=== PATIENT | female | born 1990 ===

== ENCOUNTER 2018-02-27 18:59 | Outpatient (REF) | payer OTHER, SELFPAY ==
--- NOTE | 2018-02-27 16:30 | PAPFT_PTH ---
PATIENT: WENCESLAO MAI LOC: [facility] U#:[id number] AGE/SX: 27/F ROOM: RE02/27/[address]: Alis Alexander : 1990 BED: DIS: 02/27/2018 SPEC #: [id number] RECD: 03/02/18 12:47 STATUS: CORNELIA HICKS #: [id number] NORMA: 02/27/18 16:[address]: Alis Alexander DEPT: [facility] Cytology RECD BY: Virgie Samano ENTERED: 03/02/18 12:47 SP TYPE: PAPFT OTHR DR: Omid Bacon V Tissues: 1 - CX/ENDOCX FOR PAP SMEARS Procedures: PAP THIN PREP/[facility] Screening HPV DNA PROBE Comments: [id number] (CHLAMYDIA/GC)
[2018-03-03 13:02] LABS: Chlamydia Result Negative; GC Result Negative; Specimen Description SEE COMMENTS
== END 2018-02-27 19:19 ==
LOC: NCHCN 18:59
PROVIDERS: PCP Physician Assistant Medical; Visit Provider Nurse Practitioner Family
DX: Z12.4 Encounter for screening for malignant neoplasm of cervix (principal); Z11.51 Encounter for screening for human papillomavirus (HPV); Z11.3 Encounter for screening for infections with a predominantly sexual mode of transmission
CPT/HCPCS: 87491; 87591; 88142; 87624

== ENCOUNTER 2019-11-12 21:37 | Outpatient (REF) | payer OTHER, SELFPAY ==
[2019-11-15 15:35] LABS: Chlamydia Result Negative (Negative); GC Result Negative (Negative)
== END 2019-11-12 21:57 ==
LOC: NCHCN 21:37
PROVIDERS: PCP Physician Assistant Medical; Visit Provider Physician Assistant
DX: R39.9 Unspecified symptoms and signs involving the genitourinary system (principal)
CPT/HCPCS: 87491; 87591; 87480; 87510; 87660

== ENCOUNTER 2020-05-11 21:06 | Outpatient (REF) | payer MEDICAID, SELFPAY ==
[2020-05-11 19:08] LABS: Iron 68 ug/dL (50-170); Total Iron Binding Capacity 337 ug/dL (250-450); Transferrin Sat 20 % (15-50)
[2020-05-11 19:20] LABS: Ferritin 70 ng/mL (8-252); LDL CHOLESTEROL 176 mg/dL (<100); TSH (W/Ref FT4) 2.43 uIU/mL (0.36-3.74)
== END 2020-05-11 21:26 ==
LOC: NCHCN 21:06
PROVIDERS: PCP Physician Assistant Medical; Visit Provider Physician Assistant
DX: K90.0 Celiac disease (principal); F41.8 Other specified anxiety disorders; E78.5 Hyperlipidemia, unspecified; Z86.2 Personal history of diseases of the blood and blood-forming organs and certain disorders involving the immune mechanism
CPT/HCPCS: 83721; 82728; 83540; 83550; 84443

== ENCOUNTER 2024-08-18 18:52 | Outpatient (REF) | payer BC, SELFPAY ==
[2024-08-19 23:18] LABS: Campylobacter PCR Negative (Negative); Salmonella PCR Negative (Negative); Shiga Toxin PCR Negative (Negative); Shigella/Enteroinvasive Ecoli Negative (Negative)
== END 2024-08-18 18:53 | disposition home or self-care (01) ==
LOC: NCHCN 18:52
PROVIDERS: PCP Physician Assistant Medical; Visit Provider Physician Assistant
DX: R19.7 Diarrhea, unspecified (principal)
CPT/HCPCS: 87015; 87269; 87272; 87505